=== PATIENT | female | born 2000 | race Caucasian/White ===

== ENCOUNTER 2019-05-29 11:04 | Inpatient (IN) | payer OTHER, MEDICAID ==
[~2019-05-29] VITALS: Ht 154.9 cm; Wt 56.9 kg
[~2019-05-29 11:04] MED LIST: MACROBID PO; PANT40TA39 PO
[2019-05-29] MEDS ORDERED: mag hydrox/Alum hydrox/simeth 30ml oral suspension PO PRN (11:55)
[2019-05-29] MEDS ORDERED: hydrOXYzine 25 MG tablet PO PRN (11:55)
[2019-05-29] MEDS ORDERED: LORazepam 1 MG tablet PO PRN (11:55)
[2019-05-29] MEDS ORDERED: tuberculin, purif. prot. deriv. 5 units/0.1ml ID ONE (11:55)
[2019-05-29] MEDS ORDERED: magnesium hydroxide 30ml (MOM) UD suspension PO PRN (11:55)
[2019-05-29] MEDS ORDERED: acetaminophen 325mg tablet PO PRN ×2 (11:55)
[2019-05-29] MEDS ORDERED: loperamide 2mg capsule PO PRN (11:55)
[2019-05-29 12:00] VITALS: BP 100/66
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
[2019-05-29 20:02] VITALS: BP 99/65
[2019-05-29] MEDS ORDERED: PALIPERIDONE 3 MG TAB.ER.24 PO SCH (21:00)
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
[2019-05-30 07:03] LABS: BASOPHILS % (AUTO) 0.5 % (0-1); EOSINOPHILS # (AUTO) 0.4 X10'3 (0-0.9); HEMATOCRIT 41.3 % (35.0-45.0); HEMOGLOBIN 14.1 g/dl (12.0-16.0); LYMPHOCYTES # (AUTO) 2.6 X10'3 (1.1-4.8); LYMPHOCYTES % (AUTO) 42.8 % (21-51); MEAN CORPUSCULAR HEMOGLOBIN 29.8 PG (27.0-31.0); MEAN CORPUSCULAR HGB CONC 34.2 g/dL (33.0-36.5); MEAN PLATELET VOLUME 7.3 FL (7.4-10.4); MONOCYTES # (AUTO) 0.7 X10'3 (0-0.9); NEUTROPHILS # (AUTO) 2.4 X10'3 (1.8-7.7); NEUTROPHILS % (AUTO) 39.7 % (42-75); PLATELET COUNT 191 X10'3 (140-440); RED BLOOD COUNT 4.74 X10'6 (4.20-5.60); RED CELL DISTRIBUTION WIDTH 13.1 % (11.5-14.5); WHITE BLOOD COUNT 6.1 X10'3 (4.5-11.0)
[2019-05-30 07:18] LABS: ALANINE AMINOTRANSFERASE 14 U/L (12-78); ALBUMIN 3.2 G/DL (3.4-5.0); ALBUMIN/GLOBULIN RATIO 0.9 (1.1-1.5); ALKALINE PHOSPHATASE 60 IU/L (20-180); ANION GAP 8 (8-16); ASPARTATE AMINO TRANSFERASE 7 U/L (10-37); BILIRUBIN,TOTAL 0.2 MG/DL (0.1-1.0); BLOOD UREA NITROGEN 16 MG/DL (7-18); BUN/CREATININE RATIO 21.9 (6.6-38.0); CALCIUM 8.8 MG/DL (8.5-10.1); CHLORIDE 107 MMOL/L (99-107); CHOL/HDL RATIO 3.1 (0.00-4.99); CHOLESTEROL 132 MG/DL (0-200); CREATININE 0.73 MG/DL (0.40-0.90); GLUCOSE 88 MG/DL (70-104); HDL CHOLESTEROL 43 MG/DL (35-60); LDL CHOLESTEROL 87 MG/DL (50-100); POTASSIUM 3.8 MMOL/L (3.5-5.1); SODIUM 140 MMOL/L (135-145); TOTAL PROTEIN 6.8 G/DL (6.4-8.2); TRIGLYCERIDES 38 MG/DL (20-135); eGFR > 90 ML/MIN
[2019-05-30 07:23] LABS: HEMOGLOBIN A1C 5.3 % (4.5-6.2)
[2019-05-30 08:05] VITALS: BP 90/65
[2019-05-30] MEDS ORDERED: NO HOME MEDS PO (12:06)
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
[2019-05-30 20:00] VITALS: BP 101/59
[2019-05-30] MEDS: PALIPERIDONE 3 MG TAB.ER.24 PO SCH (20:47)
[2019-05-30 21:12] LABS: HIV ANTIBODY 1&2 RAPID NON-REACTIVE (Neg)
[2019-05-30 21:25] VITALS: BP 101/59
--- NOTE | 2019-05-31 00:33 | NUR ---
Nursing Progress Note: Legal hold: 1370 Client on involuntary status for GD Report received from nurse, Gloria MART with use of SBAR Why are they here: Pt arrived on unit at 1150 [facility], previously in senior care. She was admitted for GD on a 1370. Assessment What has happened this shift: Pt asleep at the beginning of shift. Woke easy for snack in group room. During 1:1 assessment pt denied depression and SI. Pt also denied visual and auditory hallucination but when talking with the pt she spoke out saying "Mom" facing toward her pillow. Pt was soft spoken and unclear as to what followed. When asked what she had said she stated "oh nothing" shrugging her shoulders. Shortly after pt received medication she went back to sleep. S/I, H/I: denies A/VH: denies but actions showed VH Sleep: Asleep at this time ADL's: Showered Group attendance: Group room for snack Were meds taken: Yes Any med S/E: None observed or reported Mental Status Exam Appearance: dressed nicely in [facility] scrubs Eye contact: Direct Behavior: engaging, smiles when talked to Speech: clear, normal rate and rhythm Mood: happy Affect: euphoric Thought process: disorganized Thought Content: delusional Cognition: fair Insight: poor Judgment:poor Interventions PRN's used: N/A Therapeutic interventions: 1:1 assessment, provided therapeutic communication and active listening, encouraged pt to express her thoughts through drawings or writing and provided material for both, monitored q 15ming for safety. Restraints/seclusion/emergency medication: none Justification of Continued Inpatient Treatment: 137[address] court competency
[2019-05-31 08:00] VITALS: BP 101/57
[2019-05-31 08:19] LABS: RPR Non Reactive (Non Reactive)
--- NOTE | 2019-05-31 12:34 | NUR ---
Nursing Progress Note: Legal hold: 1370 Client on involuntary status for GD Report received from nurse, BRITTNY Rubin with use of SBAR Why are they here: Pt arrived on unit at [address] [facility], [facility] in [facility]. She was admitted for GD on a 1370. Assessment What has happened this shift: The patient was asleep at change of shift, up for breakfast and med compliant. Went outside on patio with others. Stated, "it was too hot so we came in." When asked if she was hearing any voices today she replied, "I always hear voices, the voices in the game, but they're not bothering me today." She eats all meals but speaks about not eating so many chicken strips." Appears to be listening to internal voices when speaking with nurse. She is calm, polite and cooperative. S/I, H/I: denies A/VH: +AH Sleep: Napped in the AM ADL's: Showered Group attendance: Yes Were meds taken: Yes Any med S/E: None observed or reported Mental Status Exam Appearance: Young 19 year old female dressed nicely in green hospital scrubs Eye contact: Direct Behavior: engaging, visible on the unit Speech: clear, normal rate and rhythm Mood: pleasant Affect: calm Thought process: disorganized Thought Content: delusional Cognition: fair Insight: poor Judgment:poor Interventions PRN's used: N/A Therapeutic interventions: 1:1 assessment, provided therapeutic communication and active listening, encouraged pt to attend both groups and encouraged her to express her thoughts through drawings or writing and provided material for both, monitored q 15ming for safety. Restraints/seclusion/emergency medication: none Justification of Continued Inpatient Treatment: 137[address] court competency
[2019-05-31 20:01] VITALS: BP 99/56
[2019-05-31] MEDS: PALIPERIDONE 3 MG TAB.ER.24 PO SCH (20:36)
--- NOTE | 2019-05-31 23:20 | NUR ---
Nursing Progress Note: Legal hold: 1370 Client on involuntary status for GD Report received from nurse BRITTNY Castro with use of SBAR Why are they here: Pt arrived on unit at 1150 [facility], [facility] in [facility]. She was admitted for GD on a 1370. Assessment What has happened this shift: Patient is in her room at the change of shift. She is noted to spend time washing her hands repeatedly and talking to herself in the mirror along with making hand gestures to herself as well. She is agreeable to a 1:1 assessment at her bedside. She confirms hearing voices, and also appears internally preoccupied during the whole assessment. She spends time walking the halls mumbling to herself this shift, she eats snack in the group room then goes to bed after her evening medications. S/I, H/I: Denies A/VH: +AH Sleep: Currently sleeping, see sleep assessment ADL's: Independent Group attendance: Yes Were meds taken: Yes Any med S/E: None observed or reported Mental Status Exam Appearance: Young 19 year old female dressed nicely in green hospital scrubs Eye contact: Direct Behavior: Engaging, visible on the unit Speech: clear, normal rate and rhythm Mood: Pleasant Affect: Calm Thought process: Disorganized Thought Content: Delusional Cognition: Fair Insight: Poor Judgment: Poor Interventions PRN's used: N/A Therapeutic interventions: 1:1 assessment, provided therapeutic communication and active listening, encouraged pt to attend both groups and encouraged her to express her thoughts through drawings or writing and provided material for both, monitored q 15ming for safety. Restraints/seclusion/emergency medication: none Justification of Continued Inpatient Treatment: [address] court competency
[2019-06-01 07:05] VITALS: BP 92/54
--- NOTE | 2019-06-01 13:21 | NUR ---
Nursing Progress Note: Legal hold: 137 Client on involuntary status for GD Report received from nurse, Tamiko Tierney RN with use of SBAR Why are they here: Pt arrived on unit at 1150 [facility], previously in retirement. She was admitted for GD on a 1370. Assessment What has happened this shift: The patient was asleep at change of shift, up for breakfast and med compliant. She denies suicidal thoughts but does admit to hearing voices and is seen numerous times in the hallway talking to herself which appears to be responding to internal voices/stimuli. Her roommate c/o "I can't get any damn sleep, that girl won't shut up, she keeps talking to herself." She listens to headphones and is calm and cooperative. She seems to be unaware of why she is here, saying, "I'm not competent", but then states she doesn't really understand what that means. Is aware of being here due to the courts. S/I, H/I: denies A/VH: +AH Sleep: Napped in the AM ADL's: Self Group attendance: Yes Were meds taken: Yes Any med S/E: None observed or reported Mental Status Exam Appearance: Clean and neat Eye contact: Direct Behavior: engaging, visible on the unit Speech: clear, normal rate and rhythm Mood: pleasant Affect: calm Thought process: disorganized Thought Content: unable to assess due to psychosis Cognition: fair Insight: poor Judgment:poor Interventions PRN's used: N/A Therapeutic interventions: 1:1 assessment, provided therapeutic communication and active listening, encouraged pt to attend both groups and encouraged her to express her thoughts through drawings or writing and provided material for both, monitored q 15ming for safety. Restraints/seclusion/emergency medication: none Justification of Continued Inpatient Treatment: [address] competency
[2019-06-01 20:00] VITALS: BP 95/64
[2019-06-01] MEDS: PALIPERIDONE 3 MG TAB.ER.24 PO SCH (20:21)
--- NOTE | 2019-06-02 00:52 | NUR ---
Nursing Progress Note: Legal hold: 1370 Client on involuntary status for GD Report received from nurse BRITTNY Castro with use of SBAR Why are they here: Pt arrived on unit at 1[address] [facility], previously in nursing home. She was admitted for GD on a 1370. Assessment What has happened this shift: Patient is in her room at the change of shift. She is agreeable to a 1:1 assessment at her bedside. At first the patient denies hearing voices but with some open ended questions and conversation patient begins to open up. She reports "I hear voices all the time, mainly Pete." When asked she expresses that Pete (Note: it was found that Pete has been since Jun 2017) is a rapper who controls her portion of "The game". She say's a bunch of people are involved and they speak to people "Psychologically." She states "It is ran by gangs to control people, they tell people what to do." When asked she undeniably expresses that she thinks the game is real and that Pete is talking to her telling her to do things. S/I, H/I: Denies A/VH: +AH Sleep: Currently sleeping, see sleep assessment ADL's: Independent Group attendance: Yes Were meds taken: Yes Any med S/E: None observed or reported Mental Status Exam Appearance: Young 19 year old female dressed nicely in green hospital scrubs Eye contact: Direct Behavior: Engaging, visible on the unit Speech: Clear, normal rate and rhythm Mood: Pleasant Affect: Calm, Internally preoccupied Thought process: Disorganized Thought Content: Delusional Cognition: Fair Insight: Poor Judgment: Poor Interventions PRN's used: N/A Therapeutic interventions: 1:1 assessment, provided therapeutic communication and active listening, encouraged pt to attend both groups and encouraged her to express her thoughts through drawings or writing and provided material for both, monitored q 15ming for safety. Restraints/seclusion/emergency medication: None Justification of Continued Inpatient Treatment: [address] competency
[2019-06-02 06:09] LABS: HBSAG SCREEN Negative (Negative); HEP A AB, IGM Negative (Negative); HEP B CORE AB, IGM Negative (Negative); HEPATITIS C ANTIBODY <0.1 s/co ratio (0.0-0.9)
[2019-06-02 07:40] VITALS: BP 100/59
--- NOTE | 2019-06-02 12:22 | NUR ---
Nursing Progress Note: Legal hold: 1370 Client on involuntary status for GD Report received from nurse, Tamiko Tierney RN with use of SBAR Why are they here: Pt arrived on unit at 1150 [facility], previously in longterm. She was admitted for GD on a 1370. Assessment What has happened this shift: The patient was asleep at change of shift, up for breakfast and med compliant. She denies suicidal thoughts but does admit to hearing voices "all the time" and it makes her very angry. She does not understand what competency means. This was explained to her and she stated she would be up to some mock trials and hopes to be able to go to a drug treatment program. She states she is sleepy in the morning because "I was in longterm and there's nothing to do, so you just sleep so I think I'm just used to it." Reports that when she gets angry she just goes back to sleep. Denies suicidal or homicidal thoughts. S/I, H/I: denies A/VH: +AH Sleep: Napped in the AM ADL's: Self Group attendance: Yes Were meds taken: Yes Any med S/E: None observed or reported Mental Status Exam Appearance: Clean and neat Eye contact: Direct Behavior: engaging, visible on the unit Speech: clear, normal rate and rhythm Mood: pleasant Affect: calm Thought process: disorganized Thought Content: the voices make her angry Cognition: fair Insight: poor Judgment:poor Interventions PRN's used: N/A Therapeutic interventions: 1:1 assessment, provided therapeutic communication and active listening, encouraged pt to attend both groups and encouraged her to express her thoughts through drawings or writing and provided material for both, monitored q 15ming for safety. Restraints/seclusion/emergency medication: none Justification of Continued Inpatient Treatment: [address] court competency
--- NOTE | 2019-06-02 12:58 | NUR ---
Initial: Pt admit to [facility] for psychosis. Pt currently on a regular diet with documented 75-100% PO intake meeting nutrient needs. Wt change likely inaccurate. Likely wt in pounds was documented in kg as 54 kg = 120 lbs. Updated BMI using wt of 54 kg is appropriate at 22. LBM 06/02. No edema or wounds. No nutrition diagnosis at this time. Will continue to follow. Recommendations: 1) Continue with regular diet 2) Weekly wt Addendum: 06/02/19 at [address] Amended: Links added.
[2019-06-02 20:00] VITALS: BP 103/64
[2019-06-02] MEDS: PALIPERIDONE 3 MG TAB.ER.24 PO SCH (21:26)
--- NOTE | 2019-06-03 01:43 | NUR ---
Nursing Progress Note: Legal hold: 1370 Client on involuntary status for GD Report received from BRITTNY Montesinos with use of SBAR Why are they here: Pt arrived on unit at 1150 [facility], previously in correction. She was admitted for GD on a 1370. Assessment What has happened this shift: Patient is self isolating following shift change. The patient is oriented X4. The states that she is exhausted because she ate to much today. She states she was to tired to go to group on the day shift. Patient complains of recent headaches. She describes hearing voices all the time. No visual hallucinations. Patient denies S/I, H/I. Her affect is flat. Patient tells this designer/writer that her depression is moderate. This patient is advised that she is in a safe place. S/I, H/I: Denies A/VH: +AH Sleep: Sleeping at shift change. ADL's: Self Group attendance: Yes Were meds taken: Yes Any med S/E: None observed or reported Mental Status Exam Appearance: Clean and neat Eye contact: Direct Behavior: engaging, visible on the unit Speech: clear, normal rate and rhythm Mood: pleasant Affect: calm Thought process: disorganized Thought Content: the voices make her angry Cognition: fair Insight: poor Judgment:poor Interventions PRN's used: N/A Therapeutic interventions: 1:1 assessment, provided therapeutic communication and active listening, encouraged pt to attend both groups and encouraged her to express her thoughts through drawings or writing and provided material for both, monitored q15 min for patient for safety. Restraints/seclusion/emergency medication: none Justification of Continued Inpatient Treatment: [address] court competency
--- NOTE | 2019-06-03 02:15 | NUR ---
Patient is sleeping quietly.
[2019-06-03 07:53] VITALS: BP 96/57
--- NOTE | 2019-06-03 17:00 | NUR ---
Nursing Progress Note: Legal hold: 1370 Client on involuntary status for GD Report received from Tamiko Baptiste RN with use of SBAR Why are they here: Pt arrived on unit at [address] [facility], previously in prison. She was admitted for GD on a 1370. Assessment What has happened this shift: Pt. sleeping at beginning of shift. Pt. did not attend group. pt. ate breakfast and went back to bed. 1:1 done at bedside. Pt. denies SI/HI, A/V H. Pt. reports she is anxious about a court date on the 10th. Pt. is requesting help preparing for court procedure. Pt. ate all meals. Pt. seen pacing in the hallway. In afternoon RN again assessed pt. for AH, Pt. states, "I don't hear voices because of Schizophrenia, I hear them because they are apart of the game...". Pt. heard talking and laughing to herself. S/I, H/I: Denies A/VH: +AH Sleep: 6 hrs ADL's: Self. Pt showered today Group attendance: Afternoon group Were meds taken: N/A Any med S/E: N/A Mental Status Exam Appearance: Clean and neat Eye contact: Direct Behavior: engaging, visible on the unit Speech: clear, normal rate and rhythm Mood: pleasant Affect: calm Thought process: disorganized Thought Content: Concerned about court Cognition: fair Insight: poor Judgment:poor Interventions PRN's used: None Therapeutic interventions: 1:1 assessment, provided therapeutic communication and active listening, encouraged pt to attend both groups and encouraged her to express her thoughts through drawings or writing and provided material for both, monitored q15 min for patient for safety. Restraints/seclusion/emergency medication: none Justification of Continued Inpatient Treatment: [address] competency
[2019-06-03 19:55] VITALS: BP 106/64
[2019-06-03] MEDS: PALIPERIDONE 3 MG TAB.ER.24 PO SCH (20:13)
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
[2019-06-04 07:25] VITALS: BP 92/56
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
[2019-06-04 20:00] VITALS: BP 104/62
[2019-06-04] MEDS ORDERED: risperiDONE 2mg tablet PO SCH (21:00)
[2019-06-04] MEDS ORDERED: PALIPERIDONE 3 MG TAB.ER.24 PO SCH (21:00)
--- NOTE | 2019-06-04 22:14 | NUR ---
Nursing Progress Note: Legal hold: 1370 Client on involuntary status for GD Report received from nurse Yamel RN with use of SBAR. Why are they here: Pt arrived on unit at [address] [facility], previously in shelter. She was admitted for GD on a 1370. Assessment What has happened this shift: The patient was found in the group room, and agreed to 1:1 at bedside. The patient reports that she's "better," and ready to go. She states that she can stay with her dad if she gets her license and a job. 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 I just need to get out of here, so I can continue to do good things." Then she talked about the "Game". "Nobody can see the game. Only people that are in it. Nobody wins, just sometimes the lights go out. Sometimes players can be right in front of your face and you won't know. I could explain it all to you, but it takes more than one sitting." The patient spent the evening watching TV in group room, then went to bed after HS med pass. S/I, H/I: Denies A/VH: Responds to "The game" Sleep: Currently sleeping, see sleep assessment ADL's: Independent Group attendance: No groups at night Were meds taken: Yes Any med S/E: None observed or reported Mental Status Exam Appearance: Young 19 year old female just showered, well groomed with short hair, dressed nicely in green hospital scrubs Eye contact: Direct Behavior: Watches TV, does not speak to others. Speech: Clear, normal rate and rhythm. Mood: Pleasant, giggles at nothing. Affect: Calm, Internally preoccupied. Thought process: Disorganized Thought Content: Delusional Cognition: Fair Insight: Poor Judgment: Poor Interventions PRN's used: N/A Therapeutic interventions: 1:1 assessment, provided therapeutic communication and active listening, encouraged pt to attend both groups and encouraged her to express her thoughts through drawings or writing and provided material for both, monitored q 15ming for safety. Restraints/seclusion/emergency medication: None Justification of Continued Inpatient Treatment: [address] court competency
[2019-06-05 07:04] VITALS: BP 97/54
--- NOTE | 2019-06-05 18:21 | NUR ---
Nursing Progress Note: Legal hold: 1370 Client on involuntary status for GD Report received from nurse BRITTNY Rubin with use of SBAR. Why are they here: Pt arrived on unit at [address] [facility], previously in halfway. She was admitted for GD on a 1370. Assessment: What has happened this shift: Pt. reports she is in a good mood. Pt. is optimistic about being able to go to court. Pt. states, "I hear voices every day, they tell me how to run the game... It happened after I found this piece of paper..." then pt.stopped elaborating. S/I, H/I: Denies A/VH: Responds to "The game" Sleep: Pt. slept 8 hrs. ADL's: Independent Group attendance: Pt. attends groups Were meds taken: Yes Any med S/E: None observed or reported Mental Status Exam Appearance: Young 19 year old female just showered, well groomed with short hair, dressed nicely in green hospital scrubs Eye contact: Direct Behavior: Watches TV, does not speak to others, pt. seen laughing and talking to herself. Speech: Clear, normal rate and rhythm, poverty of speech. Mood: Pleasant, giggles at nothing. Affect: Calm, Internally preoccupied. Thought process: Disorganized, thought blocking. Thought Content: voices that help her to win the "game". Cognition: Fair Insight: Poor Judgment: Poor Interventions PRN's used: N/A Therapeutic interventions: 1:1 assessment, provided therapeutic communication and active listening, encouraged pt to attend both groups and encouraged her to express her thoughts through drawings or writing and provided material for both, monitored q 15ming for safety. Restraints/seclusion/emergency medication: None Justification of Continued Inpatient Treatment: 1370 court competency
[2019-06-05 20:00] VITALS: BP 104/71
[2019-06-05] MEDS ORDERED: PALIPERIDONE 3 MG TAB.ER.24 PO SCH (21:00)
[2019-06-05] MEDS ORDERED: risperiDONE 2mg tablet PO SCH (21:00)
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
[2019-06-06 08:00] VITALS: BP 97/63
--- NOTE | 2019-06-06 10:27 | NUR ---
UPDATE ON LEGAL STATUS: Spoke w/Ross who reported that Aleksandra had a court date today where the charges were dismissed. She is no longer here on a 1368. Spoke w/Dr. Amor who reports that he would like patient to sign vol to continue w/her treatment. Spoke w/Rufus who reports that he will speak w/her about signing vol.
[2019-06-06] MEDS ORDERED: RISP3TAB3 PO (14:11)
--- NOTE | 2019-06-06 17:06 | NUR ---
Patient accompanied off unit at 1612 by Adeline Moody. She was picked up by her grandparents who plan to take her to the bus station where she will catch a bus to [place] to live with her father. All valuables are given to patient as well as instructions for follow-up med appointments. Patients mood is good and affect has brightening. She denies S/I and has improved since her admit to the unit. She does not appear or report acute physical or emotional distress. Nicotine replacement refused, patient did not use nicotine replacement during stay.
== END 2019-06-06 16:12 | disposition home or self-care (01) | DRG 885 ==
LOC: ADULT MH 11:39
PROVIDERS: ADMIT Psychiatry & Neurology Psychiatry; ATTEND Psychiatry & Neurology Psychiatry
DX: F29 Unspecified psychosis not due to a substance or known physiological condition (principal); F15.20 Other stimulant dependence, uncomplicated; F32.9 Major depressive disorder, single episode, unspecified; F20.9 Schizophrenia, unspecified; F10.10 Alcohol abuse, uncomplicated; F17.210 Nicotine dependence, cigarettes, uncomplicated; F12.90 Cannabis use, unspecified, uncomplicated; Z83.3 Family history of diabetes mellitus; Z91.14 Patient's other noncompliance with medication regimen; Z59.0 Homelessness; Z97.5 Presence of (intrauterine) contraceptive device; Z71.6 Tobacco abuse counseling; Z71.41 Alcohol abuse counseling and surveillance of alcoholic; Z71.51 Drug abuse counseling and surveillance of drug abuser
CPT/HCPCS: 36415; 80053; 80061; 83036; 84443; 85025; 86592; 86703; 86705; 86706; 86709; 86803; 87081; 87340

== ENCOUNTER 2019-07-29 20:20 | Emergency (ER) | payer MEDICAID, OTHER ==
[~2019-07-29] VITALS: Ht 154.9 cm; Wt 61.4 kg
[~2019-07-29 20:20] MED LIST changes: -MACROBID PO; -PANT40TA39 PO; +RISP3TAB3 PO
[2019-07-29] MEDS ORDERED: QUEtiapine 25mg tablet PO STA (20:40)
[2019-07-29] MEDS ORDERED: traZODone 50mg tablet PO ONE (21:35)
[2019-07-29] MEDS ORDERED: traZODone 50mg tablet PO SCH (21:35)
--- NOTE | 2019-07-29 21:49 | NUR ---
pt moved from ed bed 8 to of 22 via wheelchair. pt given violette crackers, milk, yogurt for snack.
--- NOTE | 2019-07-29 21:59 | NUR ---
pt asked "am I gonna have a seizure." when asked why she thinks that, pt responds that she doesn't want to bite her tongue off. pt assured she is safe and that this rn will be here all night to monitor her.
--- NOTE | 2019-07-29 23:30 | NUR ---
pt is sleeping, no s/s of distress noted.
--- NOTE | 2019-07-30 01:18 | NUR ---
pt ias sleeping on right side, no s/s of distress noted.
--- NOTE | 2019-07-30 02:12 | NUR ---
Pt asleep on her back in no apparent distress. Respirations are even and unlabored.
--- NOTE | 2019-07-30 04:17 | NUR ---
pt appears to be sleeping, no distress noted.
--- NOTE | 2019-07-30 06:27 | NUR ---
Patient sleeping on left side. No restlessness observed. Continue to monitor.
[2019-07-30 08:17] VITALS: BP 106/71
[2019-07-30] MEDS ORDERED: traZODone 50mg tablet PO SCH (20:00)
== END 2019-07-30 09:00 | disposition home or self-care (01) ==
LOC: ER 20:21
DX: F29 Unspecified psychosis not due to a substance or known physiological condition (principal); F31.9 Bipolar disorder, unspecified; F20.9 Schizophrenia, unspecified; F15.90 Other stimulant use, unspecified, uncomplicated; Z59.0 Homelessness; Z91.018 Allergy to other foods; Z88.8 Allergy status to other drugs, medicaments and biological substances
CPT/HCPCS: 99284

== ENCOUNTER 2019-08-01 17:01 | Emergency (ER) | payer MEDICAID ==
[~2019-08-01] VITALS: Ht 154.9 cm; Wt 58.5 kg
[2019-08-01 17:16] VITALS: BP 123/81
--- NOTE | 2019-08-01 18:20 | NUR ---
LAB CALLED PT FOR LAB DRAW X2, NIL
== END 2019-08-01 18:56 | disposition left against medical advice (07) ==
LOC: ER 17:01
DX: R10.9 Unspecified abdominal pain (principal); Z53.21 Procedure and treatment not carried out due to patient leaving prior to being seen by health care provider

== ENCOUNTER 2019-08-02 09:13 | Emergency (ER) | payer MEDICAID ==
[~2019-08-02] VITALS: Ht 154.9 cm; Wt 58.0 kg
--- NOTE | 2019-08-02 10:20 | NUR ---
Patient attempted to give UA sample but only provided a few drops due to being "a student in [employer] and I have this law suit that prevents more than this...". Patient educated on obtaining another clean catch UA sample.
--- NOTE | 2019-08-02 10:28 | NUR ---
pt refuse to give UA stating, " I cant pee because my bladder might be filled with blood."
[2019-08-02 10:46] VITALS: BP 105/65
== END 2019-08-02 10:47 | disposition home or self-care (01) ==
LOC: ER 09:13
DX: Z04.89 Encounter for examination and observation for other specified reasons (principal); F31.9 Bipolar disorder, unspecified; F15.90 Other stimulant use, unspecified, uncomplicated; Z59.0 Homelessness; F20.9 Schizophrenia, unspecified; Z91.018 Allergy to other foods; Z79.899 Other long term (current) drug therapy
CPT/HCPCS: 99284

== ENCOUNTER 2019-08-02 22:43 | Emergency (ER) | payer MEDICAID ==
[~2019-08-02] VITALS: Ht 154.9 cm; Wt 59.0 kg
[2019-08-02 22:54] VITALS: BP 109/65
== END 2019-08-02 23:26 | disposition left against medical advice (07) ==
LOC: ER 22:43
DX: M54.2 Cervicalgia (principal); Z53.21 Procedure and treatment not carried out due to patient leaving prior to being seen by health care provider

== ENCOUNTER 2019-08-03 21:20 | Emergency (ER) | payer MEDICAID ==
[~2019-08-03] VITALS: Ht 154.9 cm; Wt 50.1 kg
[2019-08-03 21:24] VITALS: BP 118/79
== END 2019-08-03 23:48 | disposition home or self-care (01) ==
LOC: ER 21:20
DX: F20.9 Schizophrenia, unspecified (principal); F15.90 Other stimulant use, unspecified, uncomplicated; F31.9 Bipolar disorder, unspecified; Z91.018 Allergy to other foods
CPT/HCPCS: 99284

== ENCOUNTER 2019-08-09 19:53 | Emergency (ER) | payer MEDICAID | END 2019-08-09 20:47 | disposition left against medical advice (07) | LOC: ER 19:53 | DX: H57.89 Other specified disorders of eye and adnexa (principal); Z53.21 Procedure and treatment not carried out due to patient leaving prior to being seen by health care provider ==

== ENCOUNTER 2019-08-10 09:51 | Emergency (ER) | payer MEDICAID ==
[~2019-08-10] VITALS: Ht 154.9 cm; Wt 56.8 kg
[2019-08-10 09:58] VITALS: BP 106/56
== END 2019-08-10 10:34 | disposition left against medical advice (07) ==
LOC: ER 09:52
DX: F31.89 Other bipolar disorder (principal); F15.20 Other stimulant dependence, uncomplicated; Z53.21 Procedure and treatment not carried out due to patient leaving prior to being seen by health care provider

== ENCOUNTER 2019-08-22 09:47 | Emergency (ER) | payer MEDICAID ==
[~2019-08-22] VITALS: Ht 154.9 cm; Wt 60.0 kg
[2019-08-22] MEDS ORDERED: haloperidol lactate 5mg/ml inj IM ONE (10:00)
[2019-08-22] MEDS ORDERED: diphenhydrAMINE 50 mg/ml inj IM ONE (10:00)
[2019-08-22] MEDS ORDERED: LORazepam 2 mg/ml vial IM ONE (10:00)
--- NOTE | 2019-08-22 11:32 | NUR ---
Patient laying on right side. No distress observed. Continue to monitor.
--- NOTE | 2019-08-22 11:34 | NUR ---
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
--- NOTE | 2019-08-22 12:17 | NUR ---
Patient walking around the unit eyeing the exits. RN called security to stand by. Patient wanting to leave. RN again explains that patient cannot leave. Continue to monitor.
[2019-08-22] MEDS: OLANZapine 5mg rapidly disint. tablet PO SCH ×2 (12:50→16:44)
[2019-08-22] MEDS ORDERED: LORazepam 1 MG tablet PO PRN (12:50)
--- NOTE | 2019-08-22 14:05 | NUR ---
Patient sleeping on left side. No distress observed. Continue to monitor.
--- NOTE | 2019-08-22 15:25 | NUR ---
Patient awoke and got up. Patient asked to speak to the person who put her on a 5150. RN explained the procedure. RN asked patient if she would allow the beer brewer to draw her blood. Patient states no. Patient's lips are dry. Patient drank some water and got back into bed. Patient has not urinated since she has been here. Patient knows we need a urine sample. Continue to monitor
[2019-08-22 16:40] LABS: BASOPHILS # (AUTO) 0.1 X10'3 (0-0.2); EOSINOPHILS # (AUTO) 0.1 X10'3 (0-0.9); EOSINOPHILS % (AUTO) 1.3 % (0-6); HEMATOCRIT 43.5 % (35.0-45.0); HEMOGLOBIN 14.4 g/dl (12.0-16.0); LYMPHOCYTES # (AUTO) 2.3 X10'3 (1.1-4.8); LYMPHOCYTES % (AUTO) 33.3 % (21-51); MEAN CORPUSCULAR HEMOGLOBIN 29.6 PG (27.0-31.0); MEAN CORPUSCULAR HGB CONC 33.2 g/dL (33.0-36.5); MEAN CORPUSCULAR VOLUME 89.2 FL (78-98); MEAN PLATELET VOLUME 6.9 FL (7.4-10.4); MONOCYTES # (AUTO) 0.9 X10'3 (0-0.9); MONOCYTES % (AUTO) 13.2 % (2-12); NEUTROPHILS # (AUTO) 3.5 X10'3 (1.8-7.7); NEUTROPHILS % (AUTO) 51.2 % (42-75); PLATELET COUNT 231 X10'3 (140-440); RED BLOOD COUNT 4.87 X10'6 (4.20-5.60); RED CELL DISTRIBUTION WIDTH 12.8 % (11.5-14.5); WHITE BLOOD COUNT 6.9 X10'3 (4.5-11.0)
[2019-08-22 16:51] LABS: CLARITY,URINE SLIGHTLY CLOUDY (Clear); COLOR,URINE YELLOW (Yellow); GLUCOSE, URINE NEGATIVE (Neg); KETONES,URINE NEGATIVE (Neg); LEUKOCYTE ESTERASE ,URINE MODERATE (Neg); NITRITES, URINE NEGATIVE (Neg); OCCULT BLOOD,URINE TRACE-INTACT (Neg); PROTEIN,URINE NEGATIVE (Neg); UROBILINOGEN,URINE 0.2 E.U/dL (0.2-1.0)
[2019-08-22 16:56] LABS: UA COLLECTION TYPE CLN CATCH MIDSTREAM; URINE HCG NEGATIVE (NEG)
[2019-08-22 16:57] LABS: ALANINE AMINOTRANSFERASE 12 U/L (12-78); ALBUMIN 3.7 G/DL (3.4-5.0); ALKALINE PHOSPHATASE 88 IU/L (20-180); ANION GAP 12 (8-16); ASPARTATE AMINO TRANSFERASE 3 U/L (10-37); BILIRUBIN,TOTAL 0.7 MG/DL (0.1-1.0); BLOOD UREA NITROGEN 12 MG/DL (7-18); BUN/CREATININE RATIO 16.7 (6.6-38.0); CALCIUM 9.2 MG/DL (8.5-10.1); CHLORIDE 107 MMOL/L (99-107); CREATININE 0.72 MG/DL (0.40-0.90); GLUCOSE 93 MG/DL (70-104); POTASSIUM 3.2 MMOL/L (3.5-5.1); SODIUM 143 MMOL/L (135-145); TOTAL PROTEIN 7.5 G/DL (6.4-8.2); eGFR > 90 ML/MIN
[2019-08-22 16:58] LABS: WBC,URINE TNTC /HPF (0-4)
[2019-08-22 16:59] LABS: BACTERIA,URINE 2+ /HPF (Neg); RBC,URINE 0-2 /HPF (0-2); SQUAMOUS EPITHELIAL CELL,UR MODERATE /LPF (FEW); WBC CLUMPS,URINE FEW /HPF (NEGATIVE)
[2019-08-22 17:00] LABS: URINE AMPHETAMINE SCREEN POSITIVE (Neg); URINE BARBITUATE SCREEN NEGATIVE (Neg); URINE BENZODIAZEPINES SCREEN NEGATIVE (Neg); URINE CANNABINOID SCREEN NEGATIVE (Neg); URINE COCAINE SCREEN NEGATIVE (Neg); URINE METHADONE SCREEN NEGATIVE (Neg); URINE OPIATE SCREEN POSITIVE (Neg); URINE PHENCYCLIDINE SCREEN NEGATIVE (Neg)
--- NOTE | 2019-08-22 17:05 | NUR ---
Patient sleeping on right side. No distress observed. Patient originally refused her Zyprexa, but took it later with 1 mg of Ativan. Continue to monitor.
[2019-08-22 17:10] LABS: ETHANOL < 0.010 GM/DL (0.0-0.010)
[2019-08-22] MEDS: nitrofuran/nitrofuran macrocrysal 100 MG capsule PO SCH ×2 (17:20→20:00)
--- NOTE | 2019-08-22 17:22 | NUR ---
PACKET WAS FAXED TO [facility].
[2019-08-22] MEDS: potassium Cl 20 mEq SR tablet PO SCH ×2 (20:00→20:14)
[2019-08-22] MEDS ORDERED: OLANZapine 2.5MG tablet PO SCH (20:05)
[2019-08-22] MEDS ORDERED: OLANZapine 2.5MG tablet PO ONE (20:05)
[2019-08-22] MEDS ORDERED: LORazepam 1 MG tablet PO ONE ×2 (20:05→20:35)
--- NOTE | 2019-08-22 21:40 | NUR ---
Patient is awake and exhibiting paranoia. She is oriented to person and place, not year or time. Patient exhibits anger that she is here and states she is going to leave. The legal hold is explained to this patient and she does exhibit understanding. This patient at times is noted to be responding to intenal stimuli and staring off at the curtains. Eye contact is poor. Patient is disheveled. Patients speech is very quiet, abnormal rate and rhythm. After minutes of converssation this scientific writer established some rapor with the patient. The patient agrees to become medication compliant. Patient ate around 75 percent of her dinner. The patient was admistered ativan and zyprexa for her anxiety and psychosis. The patients bed is in direct view from the nurses station.
--- NOTE | 2019-08-22 23:08 | NUR ---
Nurse report to JAY Whaley at [facility].
--- NOTE | 2019-08-23 00:58 | NUR ---
Patient is sleeping quietly.
--- NOTE | 2019-08-23 06:54 | NUR ---
pt went to bathroom @645 and now back in room. pt is sleeping now. breathing and color WNL
[2019-08-23] MEDS: potassium Cl 20 mEq SR tablet PO SCH (08:35)
[2019-08-23] MEDS: nitrofuran/nitrofuran macrocrysal 100 MG capsule PO SCH (08:35)
[2019-08-23] MEDS: OLANZapine 5mg rapidly disint. tablet PO SCH (08:35)
--- NOTE | 2019-08-23 09:17 | NUR ---
PT DID NOT EAT AND NOW SLEEPING
[2019-08-23 10:30] VITALS: BP 104/67
== END 2019-08-23 13:08 | disposition home or self-care (01) ==
LOC: ER 09:47
DX: F29 Unspecified psychosis not due to a substance or known physiological condition (principal); F60.0 Paranoid personality disorder; F31.9 Bipolar disorder, unspecified; F20.9 Schizophrenia, unspecified; F15.90 Other stimulant use, unspecified, uncomplicated; Z91.018 Allergy to other foods; Z79.899 Other long term (current) drug therapy
CPT/HCPCS: 36415; 80053; 80305; 80320; 81001; 81025; 84443; 85025; 96372; 99285; J1200; J1630; J2060

== ENCOUNTER 2019-09-15 11:20 | Emergency (ER) | payer MEDICAID | END 2019-09-15 11:41 | disposition left against medical advice (07) | LOC: ER 11:23 | DX: Z02.89 Encounter for other administrative examinations (principal); F31.9 Bipolar disorder, unspecified; F20.9 Schizophrenia, unspecified; F15.90 Other stimulant use, unspecified, uncomplicated; Z91.018 Allergy to other foods; Z79.899 Other long term (current) drug therapy | CPT/HCPCS: 99281 ==

== ENCOUNTER 2019-09-22 08:04 | Emergency (ER) | payer MEDICAID | END 2019-09-22 08:40 | disposition left against medical advice (07) | LOC: ER 08:05 | DX: R51 Headache (principal); Z53.21 Procedure and treatment not carried out due to patient leaving prior to being seen by health care provider ==

== ENCOUNTER 2019-09-23 10:19 | Emergency (ER) | payer MEDICAID ==
[~2019-09-23] VITALS: Ht 167.6 cm; Wt 60.0 kg
[2019-09-23 10:37] VITALS: BP 108/65
--- NOTE | 2019-09-23 10:38 | NUR ---
CAME IN THINKING SHE GOT SALMINLA FROM EATING TO MUCH CHICKEN SHE SAID SHE HAD ABOUT 2 THINGS OF CHICKEN BUT ATE A MAXWELL PIE TO COUNTER IT
== END 2019-09-23 10:49 | disposition home or self-care (01) ==
LOC: ER 10:20
DX: F15.90 Other stimulant use, unspecified, uncomplicated (principal); F31.9 Bipolar disorder, unspecified; F20.9 Schizophrenia, unspecified; Z60.2 Problems related to living alone; Z91.018 Allergy to other foods; Z79.899 Other long term (current) drug therapy
CPT/HCPCS: 99281

== ENCOUNTER 2019-10-04 16:39 | Emergency (ER) | payer MEDICAID, OTHER ==
[~2019-10-04] VITALS: Ht 154.9 cm; Wt 54.5 kg
[2019-10-04 17:07] VITALS: BP 114/75
== END 2019-10-04 17:23 | disposition home or self-care (01) ==
LOC: ER 16:40
DX: J02.9 Acute pharyngitis, unspecified (principal); F12.90 Cannabis use, unspecified, uncomplicated; F31.9 Bipolar disorder, unspecified; F20.9 Schizophrenia, unspecified; F15.90 Other stimulant use, unspecified, uncomplicated; Z60.2 Problems related to living alone; Z91.018 Allergy to other foods; Z79.899 Other long term (current) drug therapy
CPT/HCPCS: 99281

== ENCOUNTER → 2019-10-08 | Emergency (ER) | payer OTHER | END | disposition home or self-care (01) | LOC: ER 02:42 | DX: Z00.8 Encounter for other general examination (principal); Z53.21 Procedure and treatment not carried out due to patient leaving prior to being seen by health care provider ==

== ENCOUNTER 2019-10-28 09:12 | Emergency (ER) | payer MEDICAID, OTHER ==
[~2019-10-28] VITALS: Ht 154.9 cm; Wt 54.5 kg
[2019-10-28 09:15] VITALS: BP 120/76
[2019-10-28] MEDS ORDERED: cephalexin 250mg capsule PO ONE (09:25)
[2019-10-28] MEDS ORDERED: CEPH250T PO (09:56)
== END 2019-10-28 10:10 | disposition home or self-care (01) ==
LOC: ER 09:13
DX: L08.9 Local infection of the skin and subcutaneous tissue, unspecified (principal); M25.532 Pain in left wrist; F31.9 Bipolar disorder, unspecified; F20.9 Schizophrenia, unspecified; F12.90 Cannabis use, unspecified, uncomplicated; F15.90 Other stimulant use, unspecified, uncomplicated; Z88.8 Allergy status to other drugs, medicaments and biological substances; Z79.1 Long term (current) use of non-steroidal anti-inflammatories (NSAID); Z79.899 Other long term (current) drug therapy; Z60.2 Problems related to living alone; X58.XXXA Exposure to other specified factors, initial encounter; Y93.89 Activity, other specified; Y92.89 Other specified places as the place of occurrence of the external cause; Y99.8 Other external cause status
CPT/HCPCS: 73630; 99283

== ENCOUNTER 2019-10-31 18:08 | Emergency (ER) | payer MEDICAID, OTHER ==
[~2019-10-31] VITALS: Ht 154.9 cm; Wt 56.9 kg
[~2019-10-31 18:08] MED LIST changes: +CEPH250T PO
[2019-10-31] MEDS ORDERED: LORazepam 2 mg/ml vial IV ONE (18:45)
[2019-10-31] MEDS ORDERED: normal saline 1000ML IV soln IVB ONE ×2 (18:45→20:05)
[2019-10-31 19:12] LABS: BASOPHILS % (AUTO) 0.4 % (0-1); EOSINOPHILS # (AUTO) 0.1 X10'3 (0-0.9); EOSINOPHILS % (AUTO) 0.8 % (0-6); HEMATOCRIT 47.4 % (35.0-45.0); HEMOGLOBIN 15.9 g/dl (12.0-16.0); LYMPHOCYTES % (AUTO) 23.5 % (21-51); MEAN CORPUSCULAR HEMOGLOBIN 29.3 PG (27.0-31.0); MEAN CORPUSCULAR HGB CONC 33.6 g/dL (33.0-36.5); MEAN PLATELET VOLUME 7.1 FL (7.4-10.4); MONOCYTES # (AUTO) 0.7 X10'3 (0-0.9); MONOCYTES % (AUTO) 7.6 % (2-12); NEUTROPHILS # (AUTO) 5.9 X10'3 (1.8-7.7); NEUTROPHILS % (AUTO) 67.7 % (42-75); PLATELET COUNT 242 X10'3 (140-440); RED BLOOD COUNT 5.44 X10'6 (4.20-5.60); RED CELL DISTRIBUTION WIDTH 13.3 % (11.5-14.5); WHITE BLOOD COUNT 8.6 X10'3 (4.5-11.0)
[2019-10-31 19:30] LABS: ALANINE AMINOTRANSFERASE 54 U/L (12-78); ALBUMIN 3.8 G/DL (3.4-5.0); ALBUMIN/GLOBULIN RATIO 1.1 (1.1-1.5); ALKALINE PHOSPHATASE 88 IU/L (20-180); ANION GAP 10 (8-16); ASPARTATE AMINO TRANSFERASE 154 U/L (10-37); BILIRUBIN,TOTAL 0.5 MG/DL (0.1-1.0); BLOOD UREA NITROGEN 17 MG/DL (7-18); BUN/CREATININE RATIO 14.7 (6.6-38.0); CALCIUM 9.7 MG/DL (8.5-10.1); CHLORIDE 105 MMOL/L (99-107); CREATININE 1.16 MG/DL (0.40-0.90); GLUCOSE 100 MG/DL (70-104); POTASSIUM 3.5 MMOL/L (3.5-5.1); SODIUM 143 MMOL/L (135-145); TOTAL CARBON DIOXIDE 28.2 MMOL/L (24-32); TOTAL PROTEIN 7.4 G/DL (6.4-8.2); eGFR 60 ML/MIN
--- NOTE | 2019-10-31 20:18 | NUR ---
Patient does not want to keep corrections nurse, pulse ox, or BP cuff on.
[2019-10-31 20:39] LABS: CLARITY,URINE CLEAR (Clear); COLOR,URINE YELLOW (Yellow); GLUCOSE, URINE NEGATIVE (Neg); KETONES,URINE NEGATIVE (Neg); LEUKOCYTE ESTERASE ,URINE NEGATIVE (Neg); NITRITES, URINE NEGATIVE (Neg); OCCULT BLOOD,URINE LARGE (Neg); PROTEIN,URINE NEGATIVE (Neg); UROBILINOGEN,URINE 0.2 E.U/dL (0.2-1.0)
[2019-10-31 20:40] LABS: URINE HCG NEGATIVE (NEG)
[2019-10-31 20:42] LABS: UA COLLECTION TYPE CLN CATCH MIDSTREAM
[2019-10-31 20:49] LABS: BACTERIA,URINE NONE SEEN /HPF (Neg); MUCUS STRANDS NONE SEEN /LPF (Neg); SQUAMOUS EPITHELIAL CELL,UR FEW /LPF (FEW); WBC,URINE NONE SEEN /HPF (0-4)
[2019-10-31 20:56] LABS: URINE AMPHETAMINE SCREEN POSITIVE (Neg); URINE BARBITUATE SCREEN NEGATIVE (Neg); URINE BENZODIAZEPINES SCREEN NEGATIVE (Neg); URINE CANNABINOID SCREEN POSITIVE (Neg); URINE COCAINE SCREEN NEGATIVE (Neg); URINE METHADONE SCREEN NEGATIVE (Neg); URINE OPIATE SCREEN POSITIVE (Neg); URINE PHENCYCLIDINE SCREEN NEGATIVE (Neg)
[2019-10-31 21:20] VITALS: BP 110/73
== END 2019-10-31 22:04 | disposition home or self-care (01) ==
LOC: ER 18:11
DX: R04.0 Epistaxis (principal); F15.10 Other stimulant abuse, uncomplicated; F31.9 Bipolar disorder, unspecified; F20.9 Schizophrenia, unspecified; F12.90 Cannabis use, unspecified, uncomplicated; Z60.2 Problems related to living alone; Z79.899 Other long term (current) drug therapy; Z79.2 Long term (current) use of antibiotics; Z88.8 Allergy status to other drugs, medicaments and biological substances
CPT/HCPCS: 36415; 80053; 80305; 81001; 81025; 85025; 93005; 96361; 96374; 99284; J2060; J7030